=== PATIENT | female | born 1995 | race Caucasian/White ===

== ENCOUNTER 2023-10-25 13:54 | Emergency (ER) | payer OTHER, SELFPAY ==
[2023-10-25 13:58] VITALS: BP 90/70; PULSE 90; RESP 18; TEMP 37.2; O2SAT 100; BMI 19.6
--- NOTE | 2023-10-25 14:07 | ED_ITS ---
Documented by User: WASHINGTON Damon 10/25/23 15:57 HPI - Abdominal Pain General Chief Complaint: Abdominal Pain Stated Complaint: ABD PAIN X1 WEEK Time Seen by Provider: 10/25/23 13:56 Source: patient Mode of arrival: walk-in History of Present Illness HPI narrative: Patient is a 28-year-old female who presents to the emergency department for a 1 week history of bilateral upper quadrant abdominal pain worse in the epigastrium. She states she was diagnosed with gallstones about 1 year ago by ultrasound. She had no general surgery evaluation or surgeries, she states the pain resolved on its own. She has had no fevers, cough, chills. No other upper respiratory symptoms. She denies any lower abdominal pain, flank or back pain. No urinary symptoms or diarrhea. She is not concerned for . She had grapes about 2 hours ago. Related Data Home Medications Medication Instructions Recorded Confirmed azithromycin 500 mg tablet 500 mg PO DAILY 10/25/23 10/25/23 hyoscyamine sulfate 0.125 mg 0.125 mg sublingual Q6H PRN 10/25/23 10/25/23 sublingual tablet abdominal discomfort Previous Rx's Medication Instructions Recorded famotidine 20 mg tablet (Pepcid) 20 mg PO BID #10 tabs 10/25/23 hydrocodone 5 mg-acetaminophen 325 1 tab PO Q6H PRN pain 2 days #8 10/25/23 mg tablet tabs ketorolac 10 mg tablet 10 mg PO TID PRN pain #10 tabs 10/25/23 ondansetron 4 mg disintegrating 4 mg PO Q6H PRN nausea and 10/25/23 tablet vomiting #12 tabs Allergies Allergy/AdvReac Type Severity Reaction Status Date / Time No Known Drug Allergies Allergy Verified 10/25/23 14:01 Review of Systems ROS Constitutional Denies: fever or chills Ears, nose, mouth, and throat Denies: throat pain or nasal congestion Cardiovascular Denies: chest pain Respiratory Denies: shortness of breath Gastrointestinal Reports: abdominal pain; Denies: nausea, vomiting or diarrhea Genitourinary Denies: painful urination Musculoskeletal Denies: back pain or neck pain Integumentary/Breast Denies: rash Neurological Denies: headache Exam Narrative Exam Narrative: Gen.: Awake, alert, in no distress Head: Normocephalic, atraumatic ENT: Moist mucous membranes Respiratory: No respiratory distress Gastrointestinal: Abdomen is soft, Significantly tender in the epigastrium and right upper quadrant with voluntary guarding, no rebound Extremities: Moves extremities equally Psych: Normal mood and affect Neuro: No focal neuro deficit Skin: Warm, dry, intact Constitutional Vital Signs, click to edit/add: Last Vital Signs Temp 98.9 F 10/25/23 13:58 Pulse 90 10/25/23 13:58 Resp 18 10/25/23 13:58 BP 90/70 10/25/23 13:58 Pulse Ox 100 10/25/23 13:58 O2 Del Method Room Air 10/25/23 13:58 Course Vital Signs Vital signs: Vital Signs Temperature 98.9 F 10/25/23 13:58 Pulse Rate 90 10/25/23 13:58 Respiratory Rate 18 10/25/23 13:58 Blood Pressure 90/70 10/25/23 13:58 Pulse Oximetry 100 10/25/23 13:58 Oxygen Delivery Method Room Air 10/25/23 13:58 Temperature 98.9 F 10/25/23 13:58 Pulse Rate 90 10/25/23 13:58 Respiratory Rate 18 10/25/23 13:58 Blood Pressure 90/70 10/25/23 13:58 Pulse Oximetry 100 10/25/23 13:58 Oxygen Delivery Method Room Air 10/25/23 13:58 MDM - Abdominal Pain MDM Narrative Medical decision making narrative: Patient treated with IV fluids, lab studies show minimal leukopenia, patient has a history of chronic ITP and is followed by hematology for this. Her LFTs and bilirubin are within normal limits. Urine specimen is mildly contaminated, patient with no urinary symptoms or vomiting, we will await culture for the urine specimen. Ultrasound of the right upper quadrant shows the patient has a gallstone with no evidence of cholecystitis. She was given education and reassurance for home. Follow-up with general surgery and return to the ER if symptoms change or worsen. Medical Records Attestation: I reviewed the patient's medical records. Lab Data Attestation: I reviewed the patient's lab results. Labs: Lab Results 10/25/23 10/25/23 Range/Units 14:04 14:20 WBC 3.7 L (4.0-11.0) 10^3/uL RBC 4.11 L (4.20-5.40) 10^6/uL Hgb 11.0 L (12.0-16.0) g/dL Hct 35.7 L (36.0-48.0) % MCV 86.9 (81.0-99.0) fL MCH 26.8 (26.7-34.0) pg MCHC 30.8 (29.9-35.2) g/dL RDW 13.8 (11.0-15.0) % Plt Count 137 L (150-450) 10^3/uL MPV 10.9 (9.5-13.5) fL Seg Neuts % (Manual) 50.0 Band Neutrophils % 9.0 H (0-5) % Lymphocytes % (Manual) 16.0 L (20.5-60.0) % Monocytes % (Manual) 22.0 H (1.7-12.0) % Eosinophils % (Manual) 3.0 (0.9-7.0) % Basophils % (Manual) 0.0 L (0.2-2.0) % Neutrophils # (Manual) 1.85 (1.4-6.5) 10^3/uL Band Neutrophils # 0.3 (0.0-0.3) 10^3/uL Lymphocytes # (Manual) 0.59 L (1.20-3.80) 10^3/uL Monocytes # (Manual) 0.81 H (0.30-0.80) 10^3/uL Eosinophils # (Manual) 0.11 (0.00-0.70) 10^3/uL Basophils # (Manual) 0.00 (0.00-0.10) 10^3/uL Sodium 141 (136-145) mmol/L Potassium 3.6 (3.5-5.1) mmol/L Chloride 105 (98-107) mmol/L Carbon Dioxide 26.5 (21.0-32.0) mmol/L Anion Gap 13.1 BUN 9.0 (7.0-18.0) mg/dL Creatinine 0.36 L (0.55-1.02) mg/dL Est GFR ( Amer) >60 (>=60) Est GFR (Non-Af Amer) >60 (>=60) BUN/Creatinine Ratio 25.0 Glucose 84 (74-106) mg/dL Lactate 0.6 (0.4-2.0) mmol/L Calcium 8.6 (8.5-10.1) mg/dL Total Bilirubin 0.3 (0.2-1.0) mg/dL AST 18 (15-37) U/L ALT 37 (14-59) U/L Alkaline Phosphatase 91 (46-116) U/L Total Protein 6.2 L (6.4-8.2) g/dL Albumin 3.3 L (3.4-5.0) g/dL Globulin 2.9 g/dL Albumin/Globulin Ratio 1.1 Lipase 34.0 (16.0-77.0) U/L Serum HCG, Qual Negative (NEGATIVE) Urine Color Lt. yellow (YELLOW) Urine Clarity Clear (CLEAR) Urine pH 5.5 (5.0-9.0) Ur Specific [place] <=1.005 A (1.005-1.025) Urine Protein Negative (NEG/TRACE) mg/dL Urine Glucose (UA) Negative (NEGATIVE) mg/dL Urine Ketones Negative (NEGATIVE) mg/dL Urine Occult Blood Trace-i (NEGATIVE) Urine Nitrite Negative (NEGATIVE) Urine Bilirubin Negative (NEGATIVE) Urine Urobilinogen 0.2 (0.2-1.0) EU/dL Ur Leukocyte Esterase Trace A (NEGATIVE) Urine RBC 0-2 (0-2) #/HPF Urine WBC 2-5 A (NONE SEEN) #/HPF Ur Squamous Epith Cells Few A (NONE/RARE) #/LPF Urine Crystals Not Reportable Urine Bacteria Small A (NONE SEEN) #/HPF Urine Casts Not Reportable Urine Mucus None seen (NONE SEEN) Ur Culture Indicated? Yes Imaging Data US - abdomen: Attestation: I have reviewed the pertinent imaging results. Radiologist's impression: ITS Impressions Upper Quadrant Ultrasound 10/25/23 14:08 IMPRESSION: Ultrasound study demonstrates small gallstone in the gallbladder similar to prior study. No evidence of gallbladder wall thickening or pericholecystic fluid. Electronically authenticated by: ESTELITA MARTINO Date: 10/25/2023 15:39 Discharge Plan Discharge Chief Complaint: Abdominal Pain Clinical Impression: Gallstone, Abdominal pain, Biliary colic Patient Disposition: Home, Self-Care Time of Disposition Decision: 15:53 Condition: Good Prescriptions / Home Meds: New hydrocodone-acetaminophen 5-325 mg tablet 1 tab PO Q6H PRN (Reason: pain) 2 Days Qty: 8 0RF Rx Instructions: DX: R10.9 ketorolac 10 mg tablet 10 mg PO TID PRN (Reason: pain) Qty: 10 0RF famotidine [Pepcid] 20 mg tablet 20 mg PO BID Qty: 10 0RF ondansetron 4 mg tablet,disintegrating 4 mg PO Q6H PRN (Reason: nausea and vomiting) Qty: 12 0RF No Action azithromycin 500 mg tablet 500 mg PO DAILY hyoscyamine sulfate 0.125 mg tablet, sublingual 0.125 mg sublingual Q6H PRN (Reason: abdominal discomfort) Instructions: Biliary Colic (ED), Gallstones (ED), Acute Abdominal Pain (ED) Stand Alone Forms: Portal Instructions Referrals: Mathieu Novoa MD [Primary Care Provider] - 1 week Rolando Young MD [Physician] - 1 week Discharge Date/Time: 10/25/23 16:01 Documented by User: Jone De Leon MD 10/25/23 19:35 HPI - Abdominal Pain General Chief Complaint: Abdominal Pain Stated Complaint: ABD PAIN X1 WEEK Time Seen by Provider: 10/25/23 13:56 Related Data Home Medications Medication Instructions Recorded Confirmed azithromycin 500 mg tablet 500 mg PO DAILY 10/25/23 10/25/23 hyoscyamine sulfate 0.125 mg 0.125 mg sublingual Q6H PRN 10/25/23 10/25/23 sublingual tablet abdominal discomfort Previous Rx's Medication Instructions Recorded famotidine 20 mg tablet (Pepcid) 20 mg PO BID #10 tabs 10/25/23 hydrocodone 5 mg-acetaminophen 325 1 tab PO Q6H PRN pain 2 days #8 10/25/23 mg tablet tabs ketorolac 10 mg tablet 10 mg PO TID PRN pain #10 tabs 10/25/23 ondansetron 4 mg disintegrating 4 mg PO Q6H PRN nausea and 10/25/23 tablet vomiting #12 tabs Allergies Allergy/AdvReac Type Severity Reaction Status Date / Time No Known Drug Allergies Allergy Verified 10/25/23 14:01 Exam Constitutional Vital Signs, click to edit/add: Last Vital Signs Temp 98.9 F 10/25/23 13:58 Pulse 90 10/25/23 13:58 Resp 18 10/25/23 13:58 BP 90/70 10/25/23 13:58 Pulse Ox 100 10/25/23 13:58 O2 Del Method Room Air 10/25/23 13:58 Course Vital Signs Vital signs: Vital Signs Temperature 98.9 F 10/25/23 13:58 Pulse Rate 90 10/25/23 13:58 Respiratory Rate 18 10/25/23 13:58 Blood Pressure 90/70 10/25/23 13:58 Pulse Oximetry 100 10/25/23 13:58 Oxygen Delivery Method Room Air 10/25/23 13:58 Temperature 98.9 F 10/25/23 13:58 Pulse Rate 90 10/25/23 13:58 Respiratory Rate 18 10/25/23 13:58 Blood Pressure 90/70 10/25/23 13:58 Pulse Oximetry 100 10/25/23 13:58 Oxygen Delivery Method Room Air 10/25/23 13:58 MDM - Abdominal Pain MDM Narrative Medical decision making narrative: Patient treated with IV fluids, lab studies show minimal leukopenia, patient has a history of chronic ITP and is followed by hematology for this. Her LFTs and bilirubin are within normal limits. Urine specimen is mildly contaminated, patient with no urinary symptoms or vomiting, we will await culture for the urine specimen. Ultrasound of the right upper quadrant shows the patient has a gallstone with no evidence of cholecystitis. She was given education and reassurance for home. Follow-up with general surgery and return to the ER if symptoms change or worsen. I, Dr De Leon, have reviewed the above progress note and course of action in the ER; agree with the above. I have gone over history and physical, and discussed disposition and treatment plan with the patient. Lab Data Labs: Lab Results 10/25/23 10/25/23 Range/Units 14:04 14:20 WBC 3.7 L (4.0-11.0) 10^3/uL RBC 4.11 L (4.20-5.40) 10^6/uL Hgb 11.0 L (12.0-16.0) g/dL Hct 35.7 L (36.0-48.0) % MCV 86.9 (81.0-99.0) fL MCH 26.8 (26.7-34.0) pg MCHC 30.8 (29.9-35.2) g/dL RDW 13.8 (11.0-15.0) % Plt Count 137 L (150-450) 10^3/uL MPV 10.9 (9.5-13.5) fL Seg Neuts % (Manual) 50.0 Band Neutrophils % 9.0 H (0-5) % Lymphocytes % (Manual) 16.0 L (20.5-60.0) % Monocytes % (Manual) 22.0 H (1.7-12.0) % Eosinophils % (Manual) 3.0 (0.9-7.0) % Basophils % (Manual) 0.0 L (0.2-2.0) % Neutrophils # (Manual) 1.85 (1.4-6.5) 10^3/uL Band Neutrophils # 0.3 (0.0-0.3) 10^3/uL Lymphocytes # (Manual) 0.59 L (1.20-3.80) 10^3/uL Monocytes # (Manual) 0.81 H (0.30-0.80) 10^3/uL Eosinophils # (Manual) 0.11 (0.00-0.70) 10^3/uL Basophils # (Manual) 0.00 (0.00-0.10) 10^3/uL Sodium 141 (136-145) mmol/L Potassium 3.6 (3.5-5.1) mmol/L Chloride 105 (98-107) mmol/L Carbon Dioxide 26.5 (21.0-32.0) mmol/L Anion Gap 13.1 BUN 9.0 (7.0-18.0) mg/dL Creatinine 0.36 L (0.55-1.02) mg/dL Est GFR ( Amer) >60 (>=60) Est GFR (Non-Af Amer) >60 (>=60) BUN/Creatinine Ratio 25.0 Glucose 84 (74-106) mg/dL Lactate 0.6 (0.4-2.0) mmol/L Calcium 8.6 (8.5-10.1) mg/dL Total Bilirubin 0.3 (0.2-1.0) mg/dL AST 18 (15-37) U/L ALT 37 (14-59) U/L Alkaline Phosphatase 91 (46-116) U/L Total Protein 6.2 L (6.4-8.2) g/dL Albumin 3.3 L (3.4-5.0) g/dL Globulin 2.9 g/dL Albumin/Globulin Ratio 1.1 Lipase 34.0 (16.0-77.0) U/L Serum HCG, Qual Negative (NEGATIVE) Urine Color Lt. yellow (YELLOW) Urine Clarity Clear (CLEAR) Urine pH 5.5 (5.0-9.0) Ur Specific [place] <=1.005 A (1.005-1.025) Urine Protein Negative (NEG/TRACE) mg/dL Urine Glucose (UA) Negative (NEGATIVE) mg/dL Urine Ketones Negative (NEGATIVE) mg/dL Urine Occult Blood Trace-i (NEGATIVE) Urine Nitrite Negative (NEGATIVE) Urine Bilirubin Negative (NEGATIVE) Urine Urobilinogen 0.2 (0.2-1.0) EU/dL Ur Leukocyte Esterase Trace A (NEGATIVE) Urine RBC 0-2 (0-2) #/HPF Urine WBC 2-5 A (NONE SEEN) #/HPF Ur Squamous Epith Cells Few A (NONE/RARE) #/LPF Urine Crystals Not Reportable Urine Bacteria Small A (NONE SEEN) #/HPF Urine Casts Not Reportable Urine Mucus None seen (NONE SEEN) Ur Culture Indicated? Yes Imaging Data US - abdomen: Radiologist's impression: ITS Impressions Upper Quadrant Ultrasound 10/25/23 14:08
--- NOTE | 2023-10-25 14:08 | US_ITS ---
The [address] [address] Patient Name: ASH POTTER MRN: [id number] date: 1995 Sex: F Assigned Patient Location: ER Current Patient Location: ER Accession/Order Number: [id number] Exam Date: 10/25/2023 14:49 Report Date: 10/25/2023 15:39 At the request of: HARRISON YIP Procedure: US right upper quadrant EXAM: US right upper quadrant HISTORY: abdominal pain COMPARISON: Abdominal ultrasound study dated 10/06/2021 TECHNIQUE: Ultrasound study of the right upper quadrant of the abdomen was performed. FINDINGS: In the gallbladder there is a mobile echodensity with mild posterior shadowing compatible with a gallstone measuring 0.5 x 0.5 x 0.2 cm similar to the prior study. No evidence of gallbladder wall thickening or pericholecystic fluid. Common bile duct measures 0.25 cm in diameter which is within normal limits. Views of the liver fail to demonstrate obvious focal mass or intrahepatic ductal dilatation. Views of the pancreas fail to demonstrate obvious focal abnormality, no obvious mass or ductal dilatation. Right kidney measures 11.7 x 5.5 x 5.7 cm in longitudinal, transverse and AP dimensions. No obvious associated mass or hydronephrosis to suggest obstructive uropathy. No obvious right renal calculus. US/US right upper quadrant IMPRESSION: Ultrasound study demonstrates small gallstone in the gallbladder similar to prior study. No evidence of gallbladder wall thickening or pericholecystic fluid. Electronically authenticated by: ESTELITA MARTINO Date: 10/25/2023 15:39
[2023-10-25] MEDS: 0.9 % SODIUM CHLORIDE 1,000 ML 999 ML IV (14:24)
[2023-10-25] MEDS: FAMOTIDINE/PF 20 MG/2 ML VIAL IV (14:25)
[2023-10-25] MEDS: KETOROLAC TROMETHAMINE 30 MG/ML VIAL IVP (14:25)
[2023-10-25] MEDS: ONDANSETRON PF 4 MG/2 ML VIAL IV (14:25)
[2023-10-25 14:49] LABS: Alanine Aminotransferase 37 U/L (14-59); Albumin Globulin Ratio 1.1; Albumin Level 3.3 g/dL (3.4-5.0); Alkaline Phosphatase 91 U/L (46-116); Anion Gap 13.1; Aspartate Amino Transferase 18 U/L (15-37); Bilirubin Total 0.3 mg/dL (0.2-1.0); Calcium 8.6 mg/dL (8.5-10.1); Carbon Dioxide 26.5 mmol/L (21.0-32.0); Chloride 105 mmol/L (98-107); Estimated GFR (African America >60 (>=60); Estimated GFR (Non-African Ame >60 (>=60); Globulin 2.9 g/dL; Glucose 84 mg/dL (74-106); Potassium 3.6 mmol/L (3.5-5.1); Sodium 141 mmol/L (136-145); Total Protein 6.2 g/dL (6.4-8.2)
[2023-10-25 14:52] LABS: Hematocrit 35.7 % (36.0-48.0); Lactate/Lactic Acid 0.6 mmol/L (0.4-2.0); Mean Corpuscular HGB Conc 30.8 g/dL (29.9-35.2); Mean Corpuscular Hemoglobin 26.8 pg (26.7-34.0); Mean Corpuscular Volume 86.9 fL (81.0-99.0); Mean Platelet Volume 10.9 fL (9.5-13.5); Platelet Count 137 10^3/uL (150-450); Red Blood Count 4.11 10^6/uL (4.20-5.40); Red Cell Distribution Width 13.8 % (11.0-15.0); White Blood Count 3.7 10^3/uL (4.0-11.0)
[2023-10-25 14:53] LABS: Bilirubin Urine NEGATIVE (NEGATIVE); Blood Urine TRACE-I (NEGATIVE); Clarity Urine CLEAR (CLEAR); Color Urine LT. YELLOW (YELLOW); Glucose Urine UA NEGATIVE (NEGATIVE); Ketones Urine NEGATIVE (NEGATIVE); Leukocyte Esterase Urine TRACE (NEGATIVE); Nitrite Urine NEGATIVE (NEGATIVE); Protein Urine NEGATIVE (NEG/TRACE); Specific Gravity Urine <=1.005 (1.005-1.025); Urobilinogen Urine 0.2 EU/dL (0.2-1.0); pH Urine 5.5 (5.0-9.0)
[2023-10-25 14:59] LABS: Urine Microscopic Indicated YES
[2023-10-25 15:02] LABS: HCG Qualitative NEGATIVE (NEGATIVE)
[2023-10-25 15:09] LABS: Bacteria Urine SMALL #/HPF (NONE SEEN); RBC Urine 0-2 #/HPF (0-2)
[2023-10-25 15:10] LABS: Mucus Urine NONE SEEN (NONE SEEN); Squamous Epithelial Cell Urine FEW #/LPF (NONE/RARE); Urine Culture Indicated YES
[2023-10-25 15:25] LABS: Band Neutrophils Absolute 0.3 10^3/uL (0.0-0.3); Segmented Neut Absolute Manual 1.85 10^3/uL (1.4-6.5)
[2023-10-25 15:26] LABS: Lymphocytes Absolute Manual 0.59 10^3/uL (1.20-3.80); Monocytes Absolute Manual 0.81 10^3/uL (0.30-0.80)
[2023-10-25 15:27] LABS: Eosinophils Absolute Manual 0.11 10^3/uL (0.00-0.70)
== END 2023-10-25 16:01 | disposition home or self-care (01) ==
PROVIDERS: Physician Assistant; Emergency Provider Emergency Medicine; PCP Family Medicine
DX: K80.70 Calculus of gallbladder and bile duct without cholecystitis without obstruction (principal); R10.9 Unspecified abdominal pain; D69.3 Immune thrombocytopenic purpura; Z79.899 Other long term (current) drug therapy
CPT/HCPCS: 36415; 76705; 80053; 81001; 83605; 83690; 84703; 85027; 87086; 96374; 96375; 99285; J1885; J2405

== ENCOUNTER 2024-07-18 11:50 | Outpatient (OUT) | payer OTHER, SELFPAY ==
[2024-07-20 13:51] LABS: C. Difficile PCR NEGATIVE
== END 2024-07-18 11:51 | disposition home or self-care (01) ==
LOC: LAB 11:50
PROVIDERS: PCP Family Medicine; Visit Provider Family Medicine
DX: R19.5 Other fecal abnormalities (principal)
CPT/HCPCS: 87493

== ENCOUNTER 2024-08-22 07:43 | Outpatient (OUT) | payer OTHER, SELFPAY ==
[2024-08-23 10:15] LABS: C. Difficile PCR NEGATIVE
== END 2024-08-22 07:44 | disposition home or self-care (01) ==
PROVIDERS: PCP Family Medicine; Visit Provider Family Medicine
DX: R19.7 Diarrhea, unspecified (principal)
CPT/HCPCS: 87045; 87046; 87427; 87493